=== PATIENT | male | born 1995 | race Caucasian/White ===

== ENCOUNTER → 2017-08-19 | Outpatient (CLI) | payer OTHER ==
[~2017-08-19] VITALS: Ht 172.7 cm; Wt 88.6 kg
[~2017-08-19] MED LIST: MOBIC7.5 MG PO; ZESTORETIC 10-1 EACH PO
[2017-08-19 16:35] VITALS: BP 161/97
[2017-08-19 17:15] LABS: BUN/CREATININE RATIO 15.1 (6.0-26.0); CALCIUM 9.4 mg/dL (8.4-10.2); POTASSIUM 4.7 mmol/L (3.6-5.0)
== END ==
LOC: AMSURD 16:09 → RAD 16:09
PROVIDERS: Nurse Practitioner Family
DX: I10 Essential (primary) hypertension (principal)

== ENCOUNTER 2018-02-15 23:31 | Emergency (ER) | payer OTHER ==
[2018-02-15] MEDS ORDERED: LISINOPRIL10 MG PO (23:41)
[2018-02-16] MEDS ORDERED: NORCO 325 MG-51 TA1 PO (02:01)
[2018-02-16 02:10] VITALS: BP 128/81
== END 2018-02-16 02:10 | disposition home or self-care (01) ==
LOC: ED 23:31
DX: S42.151A Displaced fracture of neck of scapula, right shoulder, initial encounter for closed fracture (principal); W17.89XA Other fall from one level to another, initial encounter; Y92.008 Other place in unspecified non-institutional (private) residence as the place of occurrence of the external cause

== ENCOUNTER → 2018-12-24 | Outpatient (CLI) | payer OTHER ==
[~2018-12-24] MED LIST changes: +LISINOPRIL10 MG PO; +NORCO 325 MG-51 TA1 PO
== END ==
LOC: RAD 08:44
DX: M25.562 Pain in left knee (principal)

== ENCOUNTER → 2020-11-10 | Outpatient (CLI) | payer OTHER ==
[2020-11-17 10:56] LABS: ALLERGEN CLASS INTERP GUIDE AMS; BEEF (COW) ALLERGEN CLASS AMS; BEEF (COW) ALLERGEN COUNT AMS; CHOCOLATE ALLERGEN CLASS AMS; CHOCOLATE ALLERGEN COUNT AMS; CORN ALLERGEN CLASS AMS; CORN ALLERGEN COUN AMS; EGG WHITE ALLERGEN CLASS AMS; EGG WHITE ALLERGEN COUNT AMS; FISH-SHELLFISH MIX ALLGN CLASS AMS; FISH-SHELLFISH MIX ALLGN COUNT AMS; MILK ALLERGEN CLASS AMS; MILK ALLERGEN COUNT AMS; PORK ALLERGEN CLASS AMS; PORK ALLERGEN COUNT AMS; WHEAT ALLERGEN CLASS AMS; WHEAT ALLERGEN COUNT AMS
== END ==
LOC: LAB 16:57
PROVIDERS: Physician Assistant
DX: T78.1XXA Other adverse food reactions, not elsewhere classified, initial encounter (principal)

== ENCOUNTER → 2024-07-17 | Outpatient (CLI) | payer BC | LOC: LAB 13:38 | DX: R05.3 Chronic cough (principal) ==